=== PATIENT | male | born 1965 | race Caucasian/White ===

== ENCOUNTER 2020-03-20 23:15 | Emergency (ER) | payer BC ==
[2020-03-20 23:49] LABS: Appearance,Urine Clear (Clear); Bilirubin,Urine Negative (Negative); Blood,Urine Moderate (Negative); Color,Urine Yellow; Glucose,Urine (UA) Negative (Negative); Ketones,Urine 2+ (Negative); Leukocyte Esterase,Urine Negative (Negative); Mucus,Urine Rare /hpf; Nitrite,Urine Negative (Negative); PH, Urine 7.5 (5.0-8.0); Protein,Urine Trace (Negative); RBC,Urine 116 /hpf (0-5); Specific Gravity,Urine 1.021 (1.001-1.035); Squamous Epithelial Cell,Urine 1 /hpf (0-4); WBC,Urine 4 /hpf (0-5)
[2020-03-20] MEDS ORDERED: KETOROLAC 30 MG/ML 1 ML VIAL IVP STA (23:56)
[2020-03-20] MEDS ORDERED: SODIUM CHLORIDE 0.9% 1,000 ML IV STA (23:56)
[2020-03-20] MEDS ORDERED: ONDANSETRON 4 MG/2 ML VIAL IVP STA (23:56)
--- NOTE | 2020-03-21 00:05 | ED ---
General Adult HPI - General Chief complaint: Abdominal Pain Stated complaint: Kidney stones Time Seen by Provider: 03/20/20 23:28 Source: patient, RN notes reviewed Mode of arrival: ambulatory Limitations: no limitations - History of Present Illness Initial comments: 54-year-old male with a past medical history of kidney stones presents to the emergency department for a chief complaint of left flank pain. Patient states his pain radiates from his flank into his lower abdomen. Patient states this just started about 3 hours prior to arrival. Patient denies dysuria. Patient denies blood in urine. Patient states this feels like previous kidney stones that she had 10 years ago. Patient denies fevers or chills.Patient has no other complaints at this time including shortness of breath, chest pain, abdominal pain, nausea or vomiting, headache, or visual changes. - Related Data Previous Rx's Medication Instructions Recorded HYDROcodone/APAP 5-325MG [[place] 1 tab PO Q6HR PRN #10 tab 03/21/20 5-325] Ibuprofen [Motrin] 600 mg PO Q6HR PRN #20 tab 03/21/20 Ondansetron [Zofran ODT] 4 mg PO Q8HR PRN #15 tab 03/21/20 Tamsulosin [Flomax] 0.4 mg PO DAILY #14 cap 03/21/20 Allergies Allergy/AdvReac Type Severity Reaction Status Date / Time Penicillins Allergy Rash/Hives Verified 03/20/20 23:33 Sulfa (Sulfonamide Allergy Rash/Hives Verified 03/20/20 23:33 Antibiotics) Review of Systems ROS Statement: Those systems with pertinent positive or pertinent negative responses have been documented in the HPI. ROS Other: All systems not noted in ROS Statement are negative. Past Medical History Additional Past Medical History / Comment(s): kidney stone History of Any Multi-Drug Resistant Organisms: None Reported Additional Past Surgical History / Comment(s): renal stent Past Psychological History: No Psychological Hx Reported Smoking Status: Never smoker Past Alcohol Use History: None Reported Past Drug Use History: None Reported General Exam Limitations: no limitations General appearance: alert, in no apparent distress Head exam: Present: atraumatic, normocephalic, normal inspection Eye exam: Present: normal appearance, PERRL, EOMI. Absent: scleral icterus, conjunctival injection, periorbital swelling ENT exam: Present: normal exam, mucous membranes moist Neck exam: Present: normal inspection, full ROM. Absent: tenderness, meningismus, lymphadenopathy Respiratory exam: Present: normal lung sounds bilaterally. Absent: respiratory distress, wheezes, rales, rhonchi, stridor Cardiovascular Exam: Present: regular rate, normal rhythm, normal heart sounds. Absent: systolic murmur, diastolic murmur, rubs, gallop, clicks GI/Abdominal exam: Present: soft, normal bowel sounds. Absent: distended, tenderness, guarding, rebound, rigid Back exam: Absent: CVA tenderness (R), CVA tenderness (L) Course Vital Signs 03/20/20 23:30 Temperature 97.6 F Pulse Rate 71 Respiratory 20 Rate Blood Pressure 131/71 O2 Sat by Pulse 99 Oximetry Medical Decision Making - Medical Decision Making Vitals are stable. CBC CMP unremarkable. Physical exam unremarkable. Patient is well appearing. Urinalysis does show 116 red blood cells with 2+ ketones. Patient was given IV fluids. CT abdomen and pelvis without contrast shows an obstructing calculus proximal left ureter with left-sided hydronephrosis. This measures about 6 mm. Patient does have additional calculi in the left kidney. Patient has a history of kidney stones requiring lithotripsy. Patient's pain controlled at this time. Patient will be discharged home to follow up with urology. He'll return here for any worsening symptoms. - Lab Data Result diagrams: 03/21/20 00:04 03/21/20 00:04 Lab Results 03/20/20 03/21/20 03/21/20 Range/Units 23:30 00:04 00:04 WBC 9.6 (3.8-10.6) k/uL RBC 4.86 (4.30-5.90) m/uL Hgb 14.2 (13.0-17.5) gm/dL Hct 43.5 (39.0-53.0) % MCV 89.5 (80.0-100.0) fL MCH 29.2 (25.0-35.0) pg MCHC 32.7 (31.0-37.0) g/dL RDW 12.9 (11.5-15.5) % Plt Count 191 (150-450) k/uL Neutrophils % 85 % Lymphocytes % 6 % Monocytes % 6 % Eosinophils % 0 % Basophils % 0 % Neutrophils # 8.2 H (1.3-7.7) k/uL Lymphocytes # 0.6 L (1.0-4.8) k/uL Monocytes # 0.6 (0-1.0) k/uL Eosinophils # 0.0 (0-0.7) k/uL Basophils # 0.0 (0-0.2) k/uL Sodium 138 (137-145) mmol/L Potassium 3.9 (3.5-5.1) mmol/L Chloride 106 (98-107) mmol/L Carbon Dioxide 24 (22-30) mmol/L Anion Gap 8 mmol/L BUN 16 (9-20) mg/dL Creatinine 0.97 (0.66-1.25) mg/dL Est GFR (CKD-EPI)AfAm >90 (>60 ml/min/1.73 sqM) Est GFR (CKD-EPI)NonAf 89 (>60 ml/min/1.73 sqM) Glucose 146 H (74-99) mg/dL Calcium 9.2 (8.4-10.2) mg/dL Total Bilirubin 1.6 H (0.2-1.3) mg/dL AST 22 (17-59) U/L ALT 21 (4-49) U/L Alkaline Phosphatase 74 (38-126) U/L Total Protein 6.2 L (6.3-8.2) g/dL Albumin 3.9 (3.5-5.0) g/dL Amylase 54 (30-110) U/L Lipase 94 (23-300) U/L Urine Color Yellow Urine Appearance Clear (Clear) Urine pH 7.5 (5.0-8.0) Ur Specific [place] 1.021 (1.001-1.035) Urine Protein Trace H (Negative) Urine Glucose (UA) Negative (Negative) Urine Ketones 2+ H (Negative) Urine Blood Moderate H (Negative) Urine Nitrite Negative (Negative) Urine Bilirubin Negative (Negative) Urine Urobilinogen 3.0 (<2.0) mg/dL Ur Leukocyte Esterase Negative (Negative) Urine RBC 116 H (0-5) /hpf Urine WBC 4 (0-5) /hpf Ur Squamous Epith Cells 1 (0-4) /hpf Urine Mucus Rare H (None) /hpf Disposition Clinical Impression: Kidney stone on left side Disposition: HOME SELF-CARE Condition: Good Instructions (If sedation given, give patient instructions): Kidney Stones (ED) Additional Instructions: please take Motrin for pain. If pain is severe take [place]. Take Zofran as needed for nausea. Take Flomax as directed. Follow up with urology in 1-2 days. Return here to the emergency room for any worsening symptoms. Prescriptions: Tamsulosin [Flomax] 0.4 mg PO DAILY #14 cap Ibuprofen [Motrin] 600 mg PO Q6HR PRN #20 tab PRN Reason: Pain HYDROcodone/APAP 5-325MG [[place] 5-325] 1 tab PO Q6HR PRN #10 tab PRN Reason: Pain Ondansetron [Zofran ODT] 4 mg PO Q8HR PRN #15 tab PRN Reason: Nausea Is patient prescribed a controlled substance at d/c from ED?: Yes When asked, does pt state using other controlled substances?: No If prescribed controlled substance>3 days was MAPS reviewed?: Prescribed <3 Days If opioid is for acute pain is fill amount 7 days or less?: Yes If Rx opioid, was Start Talking consent form obtained?: Yes Referrals: Clyde Norman DO [Primary Care Provider] - 1-2 days James Romero MD [STAFF PHYSICIAN] - 1-2 days Time of Disposition: 01:05
[2020-03-21 00:18] LABS: Basophils % (A) 0 %; Eosinophils % (A) 0 %; HCT 43.5 % (39.0-53.0); HGB 14.2 gm/dL (13.0-17.5); Lymphocytes # (A) 0.6 k/uL (1.0-4.8); Lymphocytes % (A) 6 %; MCH 29.2 pg (25.0-35.0); MCHC 32.7 g/dL (31.0-37.0); MCV 89.5 fL (80.0-100.0); Mean Platelet Volume 8.8; Monocytes # (A) 0.6 k/uL (0-1.0); Monocytes % (A) 6 %; Neutrophils # (A) 8.2 k/uL (1.3-7.7); Neutrophils % (A) 85 %; Platelet Count 191 k/uL (150-450); RBC 4.86 m/uL (4.30-5.90); RDW 12.9 % (11.5-15.5); WBC 9.6 k/uL (3.8-10.6)
[2020-03-21 00:34] LABS: ALT 21 U/L (4-49); AST 22 U/L (17-59); African American GFR (CKD) >90 (>60 ml/min/1.73 sqM); Albumin 3.9 g/dL (3.5-5.0); Alkaline Phosphatase 74 U/L (38-126); Amylase 54 U/L (30-110); Anion Gap 8 mmol/L; Blood Urea Nitrogen 16 mg/dL (9-20); Calcium 9.2 mg/dL (8.4-10.2); Carbon Dioxide 24 mmol/L (22-30); Chloride 106 mmol/L (98-107); Glucose 146 mg/dL (74-99); Non-African American GFR(CKD) 89 (>60 ml/min/1.73 sqM); Potassium 3.9 mmol/L (3.5-5.1); Sodium 138 mmol/L (137-145); Total Bilirubin 1.6 mg/dL (0.2-1.3); Total Protein 6.2 g/dL (6.3-8.2)
--- NOTE | 2020-03-21 00:53 | CT ---
EXAMINATION TYPE: CT abdomen pelvis wo con DATE OF EXAM: 03/21/2020 COMPARISON: None HISTORY: Left flank pain CT DLP: 2370 mGycm Automated exposure control for dose reduction was used. Multiple axial sections were obtained from the diaphragm to the floor the pelvis with no contrast. Lung bases are clear of infiltrate. There is no pleural effusion. There is small hiatal hernia. There is no pericardial effusion. Liver spleen pancreas gallbladder appear normal. Bile ducts are not dilated. There is no adrenal mass. Kidneys have normal size. There are 2 calculi in the left kidney that measu re up to 4 mm. There is some fullness of the left renal pelvis. There is 6 mm obstructing calculus at the left proximal ureter. There is no retroperitoneal adenopathy. Bladder distends smoothly. There a re prostatic calcifications. There is no inguinal hernia. There are numerous diverticula in the sigmo id colon. There is no sign of diverticulitis. Appendix is posterior and lateral and appears normal. There is no mesenteric edema. There is no ascites or free air. There is no bowel obstruction. Right k idney shows no sign of obstruction. Lumbar vertebra have normal spacing and alignment. Posterior elements are intact. There is no richard adal fracture. I see no bony destructive process. The bony pelvis is intact. Hip joints appear normal . IMPRESSION: Obstructing calculus proximal left ureter with left-sided hydronephrosis. Additional calculi in the l eft kidney. Sigmoid diverticulosis without diverticulitis.
[2020-03-21] MEDS ORDERED: HYDROmorphone 0.5 MG/0.5 ML SYRINGE IVP STA (01:02)
[2020-03-21] MEDS ORDERED: ACET/COD 300 MG/30 MG STARTER PACK 6 TAB BTL PO STA (01:09)
[2020-03-21 01:22] VITALS: BP 137/83; PULSE 92; RESP 16; TEMP 98.8
--- NOTE | 2020-03-21 01:27 | XR ---
EXAMINATION TYPE: XR KUB DATE OF EXAM: 03/21/2020 COMPARISON: NONE HISTORY: Kidney stone TECHNIQUE: 2 views upright FINDINGS: There is no sign of intestinal obstruction or pneumoperitoneum. Fecal pattern is normal. Th ere is no evidence of a mass. Lung bases are clear. There are no demonstrated calcifications over the kidneys. IMPRESSION: Nonacute abdomen.
== END 2020-03-21 01:26 | disposition home or self-care (01) ==
LOC: EC 23:15
DX: N13.2 Hydronephrosis with renal and ureteral calculous obstruction (principal); Z88.0 Allergy status to penicillin; Z88.2 Allergy status to sulfonamides
CPT/HCPCS: 99284; 96374; 96375 ×2; 96361; 36415; 80053; 82150; 83690; 85025; 81001; 74018; 74176; J2405; J1885; J1170

== ENCOUNTER → 2020-04-17 | Outpatient (CLI) | payer BC ==
--- NOTE | 2020-04-18 06:17 | US ---
EXAMINATION TYPE: US kidneys/renal and bladder DATE OF EXAM: 04/17/2020 COMPARISON: CT abdomen and pelvis March 21, 2020. CLINICAL HISTORY: N20.1 CALCULUS OF URETER. history of kidney stones EXAM MEASUREMENTS: Right Kidney: 11.4 x 5.1 x 5.3 cm Left Kidney: 14.3 x 6.4 x 5.7 cm Right Kidney: no evidence of hydronephrosis Left Kidney: fullness to renal pelvis, dense echogenic areas noted with largest = 0.5cm Bladder: appears wnl Bilateral Jets seen: yes When scanning right kidney adjacent liver is heterogeneously hyperechoic consistent with diffuse fatt y infiltration. No concerning masses or hydronephrosis in the right kidney. Left kidney shows nonshad owing hyperechoic foci consistent with known nonobstructing nephrolithiasis. There is persistent mild to moderate fullness of the lower pole calyces and collecting system. IMPRESSION: Persistent mild left-sided hydronephrosis appearing upper pole as there is felt to be par tially duplicated collecting system, uncertain level of ureter fusion, probable persistent obstructin g proximal 4 mm the left ureter calculus.
== END | disposition home or self-care (01) ==
LOC: RADUSWWP 15:33
PROVIDERS: ATTEND Urology
DX: N13.30 Unspecified hydronephrosis (principal)
CPT/HCPCS: 76770

== ENCOUNTER → 2020-05-15 | Outpatient (CLI) | payer BC ==
--- NOTE | 2020-05-16 08:01 | CT ---
EXAMINATION TYPE: CT abdomen pelvis wo con DATE OF EXAM: 05/15/2020 COMPARISON: 03/21/2020 INDICATION: Left sided kidney stone. DLP: 2987.4 mGycm, Automated exposure control for dose reduction was used. CONTRAST: mL of . Study performed without Oral Contrast TECHNIQUE: Axial images were obtained from above the diaphragm to the pubic rami in the axial plane a t 5 mm thick sections. Reconstructed images are reviewed on the computer in the coronal plane. FINDINGS: Limited CT sections are obtained the lung bases. The lung bases are clear. CT ABDOMEN: Liver: Normal Spleen: Normal Pancreas: Normal Adrenal glands: The adrenal glands are normal. Gallbladder: Decompressed Kidneys: No masses are evident. No hydronephrosis is present. No cysts are present. There is a non obstructing 0.2 cm left renal stone mid to upper pole. A 0.3 cm calcifications at the mid pole left k idney and is nonobstructing. A 0.3 cm calcification is in the mid left ureter within the upper pelvis. This has moved down from th e lower abdomen and prior examination mild left hydroureter is present. Aorta: Vascular calcification is within the aorta. Inferior vena cava: Normal. CT PELVIS: Loops of bowel within the abdomen and pelvis are normal. Diverticular changes are through the sigmoi d colon. No acute adjacent inflammatory changes are evident. The study is without oral contrast solis iting bowel evaluation. Appendix: Normal as visualized. Urinary bladder: Normal. Genitourinary structures: Prostate is normal. Osseous structures: No suspicious lytic or sclerotic lesions. Facet changes are within the lumbar spi ne. IMPRESSIONS: 1. 0.3 cm calcification mid left hemipelvis has moved from the lower abdomen to this location over t he interval. Mild left hydroureter is present. 2. Nonobstructing left renal stones. 3. Diverticulosis without acute diverticulitis
== END | disposition home or self-care (01) ==
LOC: RADCTMAIN 16:44
PROVIDERS: ATTEND Urology
DX: N20.0 Calculus of kidney (principal); K57.30 Diverticulosis of large intestine without perforation or abscess without bleeding; N13.4 Hydroureter; K31.89 Other diseases of stomach and duodenum; Z88.0 Allergy status to penicillin; Z88.2 Allergy status to sulfonamides
CPT/HCPCS: 74176

== ENCOUNTER → 2020-06-16 | Outpatient (CLI) | payer BC ==
[2020-06-16 12:39] LABS: Basophils # (A) 0.1 k/uL (0-0.2); Basophils % (A) 1 %; Eosinophils # (A) 0.1 k/uL (0-0.7); Eosinophils % (A) 1 %; HGB 15.2 gm/dL (13.0-17.5); Lymphocytes # (A) 1.2 k/uL (1.0-4.8); Lymphocytes % (A) 17 %; MCH 30.3 pg (25.0-35.0); MCHC 32.4 g/dL (31.0-37.0); MCV 93.7 fL (80.0-100.0); Mean Platelet Volume 8.7; Monocytes # (A) 0.6 k/uL (0-1.0); Monocytes % (A) 8 %; Neutrophils # (A) 5.1 k/uL (1.3-7.7); Neutrophils % (A) 70 %; Platelet Count 189 k/uL (150-450); RBC 5.02 m/uL (4.30-5.90); WBC 7.2 k/uL (3.8-10.6)
[2020-06-16 12:41] LABS: Appearance,Urine Clear (Clear); Bilirubin,Urine Negative (Negative); Blood,Urine Negative (Negative); Color,Urine Yellow; Glucose,Urine (UA) Negative (Negative); Ketones,Urine Negative (Negative); Leukocyte Esterase,Urine Trace (Negative); Mucus,Urine Occasional /hpf; Nitrite,Urine Negative (Negative); PH, Urine 6.5 (5.0-8.0); Protein,Urine Negative (Negative); RBC,Urine 1 /hpf (0-5); Specific Gravity,Urine 1.019 (1.001-1.035); Squamous Epithelial Cell,Urine <1 /hpf (0-4); Urobilinogen,Urine <2.0 mg/dL (<2.0); WBC,Urine 3 /hpf (0-5)
[2020-06-16 20:02] LABS: Anion Gap 4.8 mmol/L (4.00-12.00); BUN/Creat Ratio 16.67 Ratio (12.00-20.00); Calcium 8.8 mg/dL (8.7-10.3); Carbon Dioxide 28.2 mmol/L (21.6-31.8); Non-African American GFR(CKD) 95.8 (60.0-200.0); Potassium 4.5 mmol/L (3.5-5.5)
== END | disposition home or self-care (01) ==
LOC: LABWHC1 11:04
PROVIDERS: ATTEND Urology
DX: Z01.818 Encounter for other preprocedural examination (principal); N20.1 Calculus of ureter; R31.29 Other microscopic hematuria
CPT/HCPCS: 36415; 80048; 81001; 85025; 87086

== ENCOUNTER → 2020-06-23 | Day surgery (SDC) | payer BC ==
--- NOTE | 2020-06-19 09:29 | P.HPIHPCON ---
History of Present Illness H&P Date: 06/23/20 Chief Complaint: left renal/ureteral stones Mr Rapp is 55 yo male with hx of 3 mm left mid ureteral stone and 2 non obstructing renal stones. He has failed MET. discussed with him surgical options. He agreed to proceed with ureteroscopy. Discussed risk of bleeding, infection and injury to ureter. He understood all risks and agreed to proceed with left sided ureteroscopy with holmium laser lithotripsy and stone basketting and stent placement Consent for Procedure: I have explained the operation/procedure to the patient, including the risks, benefits, side effects, alternative therapies (including not receiving the proposed treatment or service), the likelihood of the patient achieving his/her goals, and potential recuperation problems for the procedure/sedation/analgesia, as well as any blood products, if indicated. I also explained to the patient the risks, benefits and side effects of the alternatives, as well as the risks related to not receiving the proposed procedure, care, treatment, or services. Past Medical History Additional Past Medical History / Comment(s): kidney stone History of Any Multi-Drug Resistant Organisms: None Reported Additional Past Surgical History / Comment(s): renal stent Past Psychological History: No Psychological Hx Reported Smoking Status: Never smoker Past Alcohol Use History: None Reported Past Drug Use History: None Reported Medications and Allergies Home Medications Medication Instructions Recorded Confirmed Type HYDROcodone/APAP 5-325MG [[place] 1 tab PO Q6HR PRN #10 tab 03/21/20 Rx 5-325] Ibuprofen [Motrin] 600 mg PO Q6HR PRN #20 tab 03/21/20 Rx Ondansetron [Zofran ODT] 4 mg PO Q8HR PRN #15 tab 03/21/20 Rx Tamsulosin [Flomax] 0.4 mg PO DAILY #14 cap 03/21/20 Rx Allergies Allergy/AdvReac Type Severity Reaction Status Date / Time Penicillins Allergy Rash/Hives Verified 03/20/20 23:33 Sulfa (Sulfonamide Allergy Rash/Hives Verified 03/20/20 23:33 Antibiotics) Surgical - Exam - General well developed, well nourished, no distress - Respiratory normal expansion, normal respiratory effort - Abdomen Abdomen: soft, non tender - Psychiatric oriented to time, oriented to person, oriented to place Assessment and Plan Assessment: 55 yo male with 3mm left sided ureteral stone and renal stones -OR left sided ureteroscopy with holmium laser lithotripsy and stone basketting and stent placement
[2020-06-21 14:02] VITALS: BMI 50.1
[~2020-06-23] MED LIST: CIPROFLOXACIN/DEXTROSE PMX 400 MG in DEXTROSE/WATER 1 200ML.BAG IVPB ONE; DEXAMETHASONE SOD PHOSPHATE 10 MG/ML 1 ML VIAL IV ONE; GLYCOPYRROLATE 0.2 MG/ML 2 ML VIAL ONE; IOHEXOL 350 MG/ML 50 ML in EMPTY BAG 1 BAG IRRIGATION ONE; LACTATED RINGERS 1,000 ML IV ONE; LACTATED RINGERS 1,000 ML IV SCH; LIDOCAINE 1% (10MG/ML) FOR IV START INTRADERMA ONE; LIDOCAINE 1% INJ 10MG/ML (20 ML MDV) ONE; MIDAZOLAM 2 MG/2 ML VIAL ONE; NEOSTIGMINE 1 MG/ML 10 ML VIAL ONE; PHENYLEPHRINE-0.9% NACL SYG 1 MG/10 ML SYRINGE ONE; PROPOFOL 10 MG/ML 20 ML VIAL IV ONE; ROCURONIUM 10 MG/ML (10 ML VIAL) IV ONE; SUCCINYLCHOLINE CHLORIDE VIAL 200 MG/10 ML VIAL IV ONE; ePHEDrine SULFATE/0.9% NACL/PF 50 MG/5 ML SYRINGE IV ONE; fentaNYL (PF) 50 MCG/ML 2 ML AMP ONE
--- NOTE | 2020-06-23 13:28 | XR ---
EXAMINATION TYPE: XR KUB DATE OF EXAM: 06/23/2020 COMPARISON: 03/21/2020 HISTORY: Patient with left-sided renal calculus TECHNIQUE: KUB FINDINGS: There is a 0.4 cm calcification left kidney. The distal 0.6 cm right ureteral stone overlying the sacrum which are phleboliths within the pelvis. Psoas margins are normal. Bowel gas is unremarkable. Organomegaly is not appreciated. IMPRESSION: 1. 0.4 cm left renal calculus. 2. Possible 0.6 cm distal right ureteral stone
[2020-06-23] MEDS: ONDANSETRON 4 MG/2 ML VIAL IVP ONE ×2 (13:45→18:35)
--- NOTE | 2020-06-23 17:40 | P.OP ---
Date of Procedure: 06/23/20 Preoperative Diagnosis: Left ureteral, renal calculi Postoperative Diagnosis: Left renal calculi Procedure(s) Performed: Cystoscopy, left ureteroscopy, ureteral balloon dilation, holmium laser lithotripsy, stone basketing and stent placement Implants: 6-Gambian by 28 cm stent Anesthesia: BO Surgeon: Suman Eller Estimated Blood Loss (ml): 5 Pathology: other (Left renal stone) Condition: stable Disposition: PACU Indications for Procedure: Mr Rapp is 55 yo male with hx of 3 mm left mid ureteral stone and 2 non obstructing renal stones. He has failed MET. discussed with him surgical options. He agreed to proceed with ureteroscopy. Discussed risk of bleeding, infection and injury to ureter. He understood all risks and agreed to proceed with left sided ureteroscopy with holmium laser lithotripsy and stone basketting and stent placement Operative Findings: Left distal ureteral stricture, small stones within the lower pole, larger stone within the mid calyx Description of Procedure: Patient was brought to the operating room, general anesthesia was induced. He was prepped and draped in sterile fashion and placed in dorsal lithotomy position. Cystoscopy fitted with 21-Gambian sheath was inserted per urethra. Of note patient had annular stricture involving the bulbar urethra, but I was able to navigate a 21-Gambian scope past the narrowing. The cystoscope was advanced into the bladder. Cystoscopy was performed showed no abnormality within the bladder. Attention was then carried to the left ureteral orifice which was intubated with a sensor wire. At this time the cystoscope was withdrawn and a semirigid ureteroscope was inserted. It was advanced up the left ureteral orifice, approximately 2 cm away from the UVJ patient had ureteral stricture. At this time the semirigid ureteroscope was withdrawn with the wire in place. Next a ureteral balloon dilator was advanced to the area of stricture, and the stricture was dilated using the balloon dilator under fluoroscopy. At this time the balloon dilator was removed and a semirigid ureteroscope was reinserted. The area of stricture was evaluated and appeared to be benign stricture, no stones were seen at the site of the stricture. The cystoscope was advanced all the way up to the UPJ and no stones were visualized there. Pullback ureteroscopy was performed which showed no injury to the ureter or ureteral stone. Of note the stricture was revisualized. At this time a sensor wire was advanced through the ureteroscope and the ureteroscope was withdrawn with the wire in place. Next a flexible ureteroscope was passed over the wire and into the renal pelvis. Renoscopy was performed showed 2 stones one within the lower pole and additional stone in the mid calyx. Stone was dusted into smaller fragments. One of the fragments was removed and sent for stone analysis. Repeat renoscopy showed no residual sizable stones, or injury to the kidney. Pullback ureteroscopy was performed showed no injury to the ureter or any ureteral stones. At this time the cystoscope was reinserted, and the left ureteral was intubated with a sensor wire. A 6-Gambian by 26 cm stent was passed over the wire. The proximal curl was visualized on fluoroscopy and distal curl was visualized using the cystoscope. The bladder was emptied and of the case. The patient thought the procedure well taken to PACU in stable condition
[2020-06-23 17:45] VITALS: TEMP 97
[2020-06-23] MEDS: HYDROmorphone 0.5 MG/0.5 ML SYRINGE IVP PRN ×4 (18:00→18:37)
[2020-06-23 18:48] VITALS: RESP 17
[2020-06-23 19:07] VITALS: BP 102/67; PULSE 80
--- NOTE | 2020-06-24 15:52 | FL ---
EXAMINATION TYPE: FL guidance operating room DATE OF EXAM: 06/23/2020 CLINICAL HISTORY: Kidney stone removal and stent placement TECHNIQUE: Fluoroscopy. COMPARISON: None. FINDINGS: Fluoroscopic guidance was provided during procedure performed by Dr. Eller. A total of 3 0 seconds of fluoroscopic time was utilized during the procedure and 1 spot images was acquired. IMPRESSION: As Above.
== END | disposition home or self-care (01) ==
LOC: OR 13:12
PROVIDERS: ATTEND Urology
DX: N20.0 Calculus of kidney (principal); N13.5 Crossing vessel and stricture of ureter without hydronephrosis; N35.912 Unspecified bulbous urethral stricture, male; E66.01 Morbid (severe) obesity due to excess calories; Z88.0 Allergy status to penicillin; Z88.2 Allergy status to sulfonamides; Z87.442 Personal history of urinary calculi; Z98.890 Other specified postprocedural states; Z79.899 Other long term (current) drug therapy; Z96.0 Presence of urogenital implants; Z68.43 Body mass index [BMI] 50.0-59.9, adult
CPT/HCPCS: 52356; 52341; 82365; 74018; C2625; C1769; J2250; J0330; J1100; J2710; J2405; J2001; J3010; J0744; J2370; J2704; Q9967; J1170

== ENCOUNTER → 2020-09-05 | Outpatient (CLI) | payer BC ==
--- NOTE | 2020-09-05 16:05 | US ---
EXAMINATION TYPE: US kidneys/renal and bladder DATE OF EXAM: 09/05/2020 COMPARISON: CT dated 05/15/2020 & US dated 04/17/2020 CLINICAL HISTORY: N20.0 Calculus of kidney. F/U left renal lithotripsy with stent placement and remov al EXAM MEASUREMENTS: Right Kidney: 11.9 x 5.5 x 5.1 cm Left Kidney: 14.8 x 7.0 x 5.9 cm Right Kidney: Appeared wnl Left Kidney: Created collecting system, mild hydro appears to have resolved, unable to visualize calc juancarlos Bladder: wnl Bilateral Jets seen: Yes Incidental finding enlarged spleen There is no ascites. IMPRESSION: No evident hydronephrosis bilaterally. Splenomegaly.
== END | disposition home or self-care (01) ==
LOC: RADUSWWP 14:46
PROVIDERS: ATTEND Urology
DX: N20.0 Calculus of kidney (principal)
CPT/HCPCS: 76770

== ENCOUNTER → 2021-01-12 | Outpatient (CLI) | payer BC ==
[2021-01-13 03:34] LABS: Albumin 4.1 g/dL (3.80-4.90); Albumin/Globulin Ratio 1.86 (1.60-3.17); Anion Gap 10.4 mmol/L (4.00-12.00); BUN/Creat Ratio 15.56 Ratio (12.00-20.00); Calcium 9.4 mg/dL (8.7-10.3); Carbon Dioxide 24.6 mmol/L (21.6-31.8); Globulin 2.2 g/dL (1.6-3.3); Non-African American GFR(CKD) 95.8 (60.0-200.0); Potassium 4.2 mmol/L (3.5-5.5); Total Bilirubin 1.1 mg/dL (0.2-1.2); Total Protein 6.3 g/dL (6.2-8.2)
== END | disposition home or self-care (01) ==
LOC: LABWHC1 14:22
PROVIDERS: ATTEND Urology
DX: N20.0 Calculus of kidney (principal)
CPT/HCPCS: 36415; 80053; 83970